=== PATIENT | female | born 1980 | race Caucasian/White ===

== ENCOUNTER 2016-06-19 08:15 | Inpatient (IN) | payer OTHER ==
[2016-06-19 10:12] LABS: BILIRUBIN NEGATIVE (NEGATIVE); BLOOD NEGATIVE Ery/uL (NEGATIVE); CLARITY CLEAR (CLEAR); COLOR YELLOW (YELLOW); GLUCOSE (U) NORMAL (NORMAL); KETONE (U) 1+ (SMALL) mg/dL (NEGATIVE); LEUKOCYTES NEGATIVE Leu/uL (NEGATIVE); NITRITE NEGATIVE (NEGATIVE); PROTEIN NEGATIVE (NEGATIVE); SPECIFIC GRAVITY <=1.005 (1.001-1.030); UROBILINOGEN 0.2 mg/dL (0.2-1.0)
[2016-06-20 07:07] LABS: HCT 35.3 % (37.0-47.0); HGB 11.6 g/dl (12.5-16.0); MCH 27.7 pg (25.0-31.0); MCHC 32.9 g/dL (32.0-36.0); MCV 84.2 fL (78.0-100.0); MPV 9.8 fL (6.0-9.5); RBC 4.19 M/uL (4.20-5.40); RDW 15.6 % (11.5-14.0); WBC 11.2 K/uL (4.0-10.5)
[2016-06-20 07:20] LABS: CREATININE 0.7 mg/dL (0.5-1.0); POTASSIUM 4.6 mmol/L (3.5-5.1)
[2016-06-22] MEDS ORDERED: DEXILANT60 MG PO (16:56)
[2016-06-22] MEDS ORDERED: DESYREL50 MG PO (16:56)
[2016-06-22] MEDS ORDERED: LISINOPRIL 20MG20 MG PO (16:57)
[2016-06-22] MEDS ORDERED: LOPRESSOR25 MG PO (16:57)
[2016-06-22] MEDS ORDERED: TOPAMAX100 MG PO (16:57)
[2016-06-22] MEDS ORDERED: FLONASE ALLER15.8 ML (16:57)
[2016-06-22] MEDS ORDERED: [UNRECOGNIZED DRUG - OTHER] PO (16:58)
--- NOTE | 2016-06-22 18:45 | NUR ---
1730- LINSEY DRAIN REMOVED, BANDAGE APPLIED. PT TOLERATED WELL
--- NOTE | 2016-06-22 19:23 | NUR ---
1924-PT. DISCHARGED VIA WHEELCHAIR WITH FAMILY. PT. IN STABLE CONDITION.
== END 2016-06-22 19:25 | disposition home or self-care (01) | DRG 620 ==
LOC: FMS 08:15 → FTCU 10:54
PROVIDERS: ADMIT Surgery
PROC: 0DJ08ZZ Inspection of Upper Intestinal Tract, Via Natural or Artificial Opening Endoscopic (ICD-10-PCS; 2016-06-19)
PROC: 0DB64Z3 Excision of Stomach, Percutaneous Endoscopic Approach, Vertical (ICD-10-PCS; principal; 2016-06-19 08:15)
PROC: 0BQR4ZZ (ICD-10-PCS; 2016-06-19 08:15)
DX: E66.01 Morbid (severe) obesity due to excess calories (principal); F33.0 Major depressive disorder, recurrent, mild; I10 Essential (primary) hypertension; E55.9 Vitamin D deficiency, unspecified; E11.9 Type 2 diabetes mellitus without complications; D50.9 Iron deficiency anemia, unspecified; Z68.42 Body mass index [BMI] 45.0-49.9, adult; K44.9 Diaphragmatic hernia without obstruction or gangrene; G47.33 Obstructive sleep apnea (adult) (pediatric); K21.9 Gastro-esophageal reflux disease without esophagitis; J45.909 Unspecified asthma, uncomplicated; E78.5 Hyperlipidemia, unspecified; Z88.0 Allergy status to penicillin; Z88.8 Allergy status to other drugs, medicaments and biological substances; Z79.899 Other long term (current) drug therapy; Z91.040 Latex allergy status
CPT/HCPCS: 36415; 74240; 80048; 81003; 82150; 82962; 84703; 86850; 86900; 86901; 88307; 88312; 93005; 94010; J0131; J0690; J1100; J1885; J1980; J2270; J2405; J2704; J2710; J2765; J3411; J3475